=== PATIENT | female | born 1945 | race Caucasian/White ===

== ENCOUNTER 2018-01-28 10:26 | Outpatient (CLI) | payer MEDICARE, OTHER ==
[2016-01-11 17:56] VITALS: O2SAT 94
== END 2018-01-28 10:27 | disposition home or self-care (01) | DRG 556 ==
LOC: CONVCARE 10:26
PROVIDERS: ATTEND Orthopaedic Surgery
DX: M25.551 Pain in right hip (principal); M16.11 Unilateral primary osteoarthritis, right hip
CPT/HCPCS: 73502

== ENCOUNTER 2018-03-04 12:30 | Outpatient (CLI) | payer OTHER ==
[2016-01-11 17:56] VITALS: O2SAT 94
== END 2018-03-04 12:31 | disposition home or self-care (01) | DRG 556 ==
LOC: CONVCARE 12:30
PROVIDERS: ATTEND Orthopaedic Surgery
DX: M25.551 Pain in right hip (principal)

== ENCOUNTER 2018-06-03 08:57 | Inpatient (IN) | payer OTHER ==
[2018-06-03] MEDS ORDERED: PROPOFOL 500 MG/50 ML EMU IV ONE ×2 (09:12→12:54)
[2018-06-03] MEDS ORDERED: DEXAMETHASONE 20 MG/5 ML (4 MG/ML SOL) ONE (09:12)
[2018-06-03] MEDS ORDERED: METOCLOPRAMIDE HYDROCHLORIDE 5 MG/ML SOL ONE (09:12)
[2018-06-03] MEDS ORDERED: MIDAZOLAM 2 MG/2 ML SOL ONE (09:13)
[2018-06-03] MEDS ORDERED: MORPHINE SULFATE 0.5 MG/ML SOL ONE (09:13)
[2018-06-03] MEDS ORDERED: LACTATED RINGERS 1,000 ML IV ONE (09:30)
[2018-06-03] MEDS ORDERED: SCOPOLAMINE 1.5MG PATCH TD SCH (09:30)
[2018-06-03] MEDS: SODIUM CHLORIDE 0.9% FLUSH 10 ML SOL IV PRN (09:50)
[2018-06-03] MEDS ORDERED: LACTATED RINGERS 1,000 ML IV SCH (10:30)
[2018-06-03] MEDS ORDERED: SODIUM CHLORIDE 20 ML 20 ML ONE (11:04)
[2018-06-03] MEDS ORDERED: BUPIVACAINE LIPOSOME 20 ML SUS ONE (11:05)
[2018-06-03] MEDS ORDERED: CEFAZOLIN SODIUM 1 GM PDS ONE ×2 (11:10→19:59)
[2018-06-03] MEDS ORDERED: TRANEXAMIC ACID 100 MG/ML SOL ONE (11:21)
[2018-06-03] MEDS ORDERED: ONDANSETRON HCL 4 MG/2 ML SOL IV PRN (14:50)
[2018-06-03] MEDS ORDERED: ALUMINUM/MAGNESIUM 30 ML SUS PO PRN (14:50)
[2018-06-03] MEDS ORDERED: HYDROMORPHONE HCL 2 MG/ML SOL IV PRN (14:50)
[2018-06-03] MEDS ORDERED: ONDANSETRON 4 MG ODT BU PRN (14:50)
[2018-06-03] MEDS ORDERED: SODIUM CHLORIDE 0.9% 500 ML 500 ML IV PRN (14:50)
[2018-06-03] MEDS ORDERED: ZOLPIDEM TARTRATE 5 MG TAB PO PRN (14:50)
[2018-06-03] MEDS ORDERED: ACETAMINOPHEN 325 MG PO PRN (14:50)
[2018-06-03] MEDS ORDERED: BISACODYL 10 MG SUP PR PRN (14:50)
[2018-06-03] MEDS ORDERED: DIAZEPAM 5 MG TAB PO PRN (14:50)
[2018-06-03] MEDS ORDERED: FLEET ENEMA PR PRN (14:50)
[2018-06-03] MEDS ORDERED: MAGNESIUM HYDROXIDE 30 ML SUS PO PRN (14:50)
[2018-06-03] MEDS: SODIUM CHLORIDE 0.9% FLUSH 10 ML SOL IV SCH ×2 (16:18→23:43)
[2018-06-03] MEDS: DEXTROSE/SALINE 0.45/KCL 20MEQ 1,000 ML/1,000 ML SOL IV SCH (16:20)
[2018-06-03] MEDS: APAP/OXYCODONE 325/5 TAB PO PRN ×2 (16:49→21:29)
[2018-06-03] MEDS ORDERED: SODIUM CHLORIDE 0.9% 100 ML 100 ML IV ONE (19:59)
[2018-06-03] MEDS: CEFAZOLIN SODIUM 1 GM PDS 2 GM in SODIUM CHLORIDE 0.9% 100 ML 100 ML IV SCH (20:13)
[2018-06-03] MEDS: SENNOSIDES A AND B 8.6 MG TAB PO SCH (20:16)
[2018-06-03] MEDS: GABAPENTIN 300 MG CAP PO SCH (20:20)
[2018-06-04] MEDS: DEXTROSE/SALINE 0.45/KCL 20MEQ 1,000 ML/1,000 ML SOL IV SCH (00:58)
[2018-06-04] MEDS ORDERED: CEFAZOLIN SODIUM 1 GM PDS ONE (03:31)
[2018-06-04] MEDS ORDERED: SODIUM CHLORIDE 0.9% 100 ML 100 ML IV ONE (03:31)
[2018-06-04] MEDS: CEFAZOLIN SODIUM 1 GM PDS 2 GM in SODIUM CHLORIDE 0.9% 100 ML 100 ML IV SCH (03:40)
[2018-06-04] MEDS: APAP/OXYCODONE 325/5 TAB PO PRN ×4 (06:47→20:57)
[2018-06-04 07:18] LABS: HEMOGLOBIN 11.6 gm/dl (12.0-15.5); MEAN CORPUSCULAR HGB CONC 31.8 gm/dl (32.0-36.0)
[2018-06-04] MEDS: SODIUM CHLORIDE 0.9% FLUSH 10 ML SOL IV SCH ×4 (07:24→23:24)
[2018-06-04] MEDS ORDERED: FAMOTIDINE 20 MG TAB ONE (08:54)
[2018-06-04] MEDS ORDERED: RANITIDINE HCL 150 MG TAB PO SCH (09:00)
[2018-06-04] MEDS: GABAPENTIN 300 MG CAP PO SCH ×2 (09:01→20:57)
[2018-06-04] MEDS: RIVAROXABAN 10 MG TAB PO SCH (09:01)
[2018-06-04] MEDS ORDERED: PEG-400/PROPYLENE GLYCOL 1 DROP SOL EACHEYE PRN (09:15)
[2018-06-04] MEDS ORDERED: HYDROMORPHONE 1 MG/ML SYRINGE IV PRN (09:15)
[2018-06-04] MEDS: FAMOTIDINE 20 MG TAB PO SCH (09:18)
[2018-06-04] MEDS: SENNOSIDES A AND B 8.6 MG TAB PO SCH (20:57)
[2018-06-05] MEDS: APAP/OXYCODONE 325/5 TAB PO PRN (02:29)
[2018-06-05] MEDS: FAMOTIDINE 20 MG TAB PO SCH (06:19)
[2018-06-05] MEDS: SODIUM CHLORIDE 0.9% FLUSH 10 ML SOL IV SCH ×3 (06:19→23:59)
[2018-06-05 07:21] LABS: HEMOGLOBIN 11.3 gm/dl (12.0-15.5); MEAN CORPUSCULAR HEMOGLOBIN 28.7 pg (27.0-32.0); MEAN CORPUSCULAR HGB CONC 31.5 gm/dl (32.0-36.0)
[2018-06-05] MEDS: GABAPENTIN 300 MG CAP PO SCH ×2 (08:31→20:25)
[2018-06-05] MEDS: RIVAROXABAN 10 MG TAB PO SCH (08:31)
[2018-06-05] MEDS: TRAMADOL HYDROCHLORIDE 50 MG TAB PO PRN ×3 (08:59→23:55)
[2018-06-05 12:21] LABS: CALCIUM 8.4 mg/dl (8.5-10.1); CREATININE 0.85 mg/dl (0.60-1.00); POTASSIUM 4.1 mMol/L (3.5-5.1)
[2018-06-05 12:25] LABS: CARBON DIOXIDE 33.1 mEq/L (21-32)
[2018-06-05 18:14] VITALS: RESP 18
[2018-06-05] MEDS: SENNOSIDES A AND B 8.6 MG TAB PO SCH (20:25)
[2018-06-06] MEDS: TRAMADOL HYDROCHLORIDE 50 MG TAB PO PRN ×3 (05:52→19:34)
[2018-06-06] MEDS: SODIUM CHLORIDE 0.9% FLUSH 10 ML SOL IV SCH ×4 (05:59→23:42)
[2018-06-06] MEDS: FAMOTIDINE 20 MG TAB PO SCH (06:00)
[2018-06-06 07:21] LABS: HEMOGLOBIN 10.4 gm/dl (12.0-15.5); MEAN CORPUSCULAR HEMOGLOBIN 28.7 pg (27.0-32.0); MEAN CORPUSCULAR HGB CONC 31.5 gm/dl (32.0-36.0)
[2018-06-06] MEDS ORDERED: SODIUM CHLORIDE 0.9% 500 ML 500 ML IV ONE (08:12)
[2018-06-06] MEDS: RIVAROXABAN 10 MG TAB PO SCH (08:42)
[2018-06-06] MEDS: GABAPENTIN 300 MG CAP PO SCH ×2 (08:42→20:40)
[2018-06-06] MEDS: SODIUM CHLORIDE 0.9% FLUSH 10 ML SOL IV PRN (09:52)
[2018-06-06] MEDS: SENNOSIDES A AND B 8.6 MG TAB PO SCH (20:40)
[2018-06-07] MEDS: TRAMADOL HYDROCHLORIDE 50 MG TAB PO PRN (04:09)
[2018-06-07] MEDS: SODIUM CHLORIDE 0.9% FLUSH 10 ML SOL IV SCH (06:37)
[2018-06-07] MEDS: FAMOTIDINE 20 MG TAB PO SCH (06:38)
[2018-06-07 07:34] LABS: CALCIUM 8.3 mg/dl (8.5-10.1); CARBON DIOXIDE 28.3 mEq/L (21-32); CREATININE 0.76 mg/dl (0.60-1.00)
[2018-06-07 07:36] LABS: BASOPHILS % (AUTO) 1 % (0-3); EOSINOPHILS % (AUTO) 4 % (0-9); HEMATOCRIT 33 % (35-47); HEMOGLOBIN 10.1 gm/dl (12.0-15.5); LYMPHOCYTES % (AUTO) 11.34 % (10-50); MEAN CORPUSCULAR HEMOGLOBIN 27.9 pg (27.0-32.0); MEAN CORPUSCULAR HGB CONC 30.6 gm/dl (32.0-36.0); MEAN CORPUSCULAR VOLUME 91 fL (81-99); MONOCYTES % (AUTO) 10.2 % (0-12); NEUTROPHILS % (AUTO) 73.6 % (37-80)
[2018-06-07] MEDS: RIVAROXABAN 10 MG TAB PO SCH (08:02)
[2018-06-07] MEDS: GABAPENTIN 300 MG CAP PO SCH (08:02)
[2018-06-07 08:12] VITALS: BP 122/75; PULSE 83; TEMP 98.1; O2SAT 90
== END 2018-06-07 10:30 | DRG 470 ==
LOC: ACUTE CARE 08:57
PROVIDERS: ADMIT Orthopaedic Surgery; ATTEND Orthopaedic Surgery
PROC: F01H0FZ Muscle Performance Assessment of Integumentary System - Whole Body using Assistive, Adaptive, Supportive or Protective Equipment (ICD-10-PCS; 2018-06-03)
PROC: F0130FZ Muscle Performance Assessment of Neurological System - Whole Body using Assistive, Adaptive, Supportive or Protective Equipment (ICD-10-PCS; 2018-06-03)
PROC: 0SR90J9 Replacement of Right Hip Joint with Synthetic Substitute, Cemented, Open Approach (ICD-10-PCS; principal; 2018-06-03 11:30)
PROC: F02Z0ZZ Bathing/Showering Assessment (ICD-10-PCS; 2018-06-04)
PROC: F02Z3ZZ Grooming/Personal Hygiene Assessment (ICD-10-PCS; 2018-06-04)
DX: M16.11 Unilateral primary osteoarthritis, right hip (principal); K21.9 Gastro-esophageal reflux disease without esophagitis; Z96.641 Presence of right artificial hip joint; R09.02 Hypoxemia
CPT/HCPCS: 36415; 71045; 73501; 73502; 80048; 85025; 85027; 85049; 94150; 94762; 99070; J0690; J1100; J2250; J2274; J2405; J2765; A6219; A6232; A9270-GY; J2704; J3490

== ENCOUNTER 2018-07-29 12:28 | Outpatient (CLI) | payer OTHER ==
[2018-06-07 08:12] VITALS: O2SAT 90
== END 2018-07-29 12:29 | disposition home or self-care (01) | DRG 561 ==
LOC: CONVCARE 12:28
PROVIDERS: ATTEND Orthopaedic Surgery
DX: Z47.1 Aftercare following joint replacement surgery (principal); Z96.641 Presence of right artificial hip joint
CPT/HCPCS: 73502